=== PATIENT | female | born 1950 | race Caucasian/White ===

== ENCOUNTER → 2018-11-02 | Outpatient (CLI) | payer BC | END | disposition home or self-care (01) | LOC: LAB SHORT 10:54 → LAB EV 10:54 | DX: R35.0 Frequency of micturition (principal) | CPT/HCPCS: 87086 ==

== ENCOUNTER → 2019-04-12 | Outpatient (CLI) | payer BC | END | disposition home or self-care (01) | LOC: LAB SHORT 13:20 → LAB 13:20 | DX: R82.79 Other abnormal findings on microbiological examination of urine (principal) | CPT/HCPCS: 87086 ==

== ENCOUNTER 2019-05-04 10:18 | Day surgery (SDC) | payer BC ==
[2019-05-04 12:18] LABS: Performing Lab VERACYTE; Test Name FNA
== END 2019-05-04 22:46 | disposition home or self-care (01) ==
LOC: US 10:18
PROVIDERS: Family Medicine
DX: E04.1 Nontoxic single thyroid nodule (principal)
CPT/HCPCS: 10005

== ENCOUNTER 2019-10-06 06:27 | Day surgery (SDC) | payer BC ==
[~2019-10-06] VITALS: Ht 172.7 cm; Wt 92.8 kg
[~2019-10-06 06:27] MED LIST: CENTRUM SILVER1 EAC2
== END 2019-10-06 08:49 | disposition home or self-care (01) ==
LOC: ORSCSDS 06:27
PROVIDERS: Surgery
PROC: 0DBP8ZX Excision of Rectum, Via Natural or Artificial Opening Endoscopic, Diagnostic (ICD-10-PCS; principal; 2019-10-06 08:00)
DX: Z12.11 Encounter for screening for malignant neoplasm of colon (principal); D12.8 Benign neoplasm of rectum; Z80.0 Family history of malignant neoplasm of digestive organs; Z86.010 Personal history of colon polyps; Z87.891 Personal history of nicotine dependence
CPT/HCPCS: 88305; J2405; J2704; J7120